=== PATIENT | male | born 1985 | race Caucasian/White ===

== ENCOUNTER 2025-02-13 13:21 | Emergency (ER) | payer BC, SELFPAY ==
[2025-02-13 13:23] VITALS: BP 137/93
--- NOTE | 2025-02-13 15:02 | ED.SKININJ ---
HPI-Injury
General
Chief Complaint: Skin Surface Trauma
Source: patient
Exam Limitations: none
Time Seen by Provider: 02/13/25 14:49
Nursing documentation reviewed up to this point in time: agreed with
History of Present Illness-Injury
Initial Injury comments:
39 yo male was stung by a bee left Achilles area, he was in his yard, holding a machete, went to swat the bee away and cut himself inner left ankle. Unsure of last dT.
Past History
Past History
ED Past Medical History: None
ED Past Surgical History: None
Social History
Tobacco: Non-smoker
Alcohol: Occasional
Personal:
Living: with family
Employment: Employed
Review of Systems
Review of Systems
Allergies reviewed?: Yes
All Other Systems: ROS reviewed and negative except as documented in HPI and ROS
Skin Exam
Laceration
Medial aspect left ankle:
Length in cm: 2
Orientation: vertical
Type of Laceration: simple
Any active bleeding?: no active bleeding
Distal skin color and temperature: normal-warm & good color
Normal distal neurovascular exam: Yes
Range of motion: full
Phy Exam
Physical Exam
Physical Exam:
PHYSICAL EXAMINATION:
General: no apparent distress, not acutely ill
Neuro: alert and oriented.
Psychiatric: well kept. interactive and cooperative
Musculoskeletal: Moves with ease
Skin: Warm, pink. Mild redness left Achilles at site of bee sting
Course
Orders/Labs/Results
Orders:
Orders
02/13/25 15:02
Tetanus/Diphth/Acelpertussis [Adacel] 0.5 ml IM .ONCE ONE
Vital Signs
Initial and Last Documented VS:
Initial Vital Signs
Temp Pulse Resp BP Pulse Ox
97.2 F 96 16 137/93 100
02/13/25 13:23 02/13/25 13:23 02/13/25 13:23 02/13/25 13:23 02/13/25 13:23
Last Documented Vital Signs
Temp Pulse Resp BP Pulse Ox
97.2 F 96 16 137/93 100
02/13/25 13:23 02/13/25 13:23 02/13/25 13:23 02/13/25 13:23 02/13/25 15:02
Procedures
Laceration Closure
Medial aspect left ankle:
Status of Wound: clean
Size of Wound in cm: 2
Description of Wound Edges: sharp
Preparation: cleaned with saline
Revision/Debridement: routine- no revision
Wound exploration: explored to base- no FB and no tendon involvement
Type of Closure: Dermabond-skin glue (Reinforced with skin adhesive and Steri-Strips, sterile gauze dressing)
MDM/Problems Addressed
MDM/Problems Addressed:
39 yo male was stung by a bee left Achilles area, he was in his yard, holding a machete, went to swat the bee away and cut himself inner left ankle. Unsure of last dT.
Tdap updated
Good approximation of wound with glue, steri strips and sterile gauze dressing applied.
*Pulse Oximetry
SaO2: 100
Oxygen Mode of Delivery: Room air
Patient hypoxic: not evaluated
*Critical Care Note
Total Time (30-74mins, 75-104mins- exclusive of procedures): Not Applicable
ED Attending Note
-
Portions of this chart may have been created with voice recognition software.� Occasional wrong word or��sound alike� substitutions may have occurred due to the inherent limitations of voice recognition software.
Discharge Plan
Departure
Patient Disposition: Home (Routine Discharge)
Date of Disposition: 02/13/25
Time of Disposition: 15:06
Patient with high blood pressure during this ER visit?: No
Condition: Good
Discharge Problem:
Bee sting, Laceration of left ankle
Instructions: Laceration Repair With Glue (DC), Insect bites and stings - ED (DC)
Referrals:
Blaire Trejo MD [Family Provider, Internal Medicine] - As needed
Activity Restrictions/Additional Instructions:
As we discussed, it takes 12 to 14 days for this area to heal.
Keep the current dressing on for 24 hours
Starting tomorrow, may briefly wet the area in the shower, just do not rub it or apply any ointments.
If the strips fall off before 12 days it is okay, simply keep the area covered with a Band-Aid.
Seek medical care immediately for signs of infection which may include increasing pain, swelling, redness, pus drainage, fever or red streak up the leg.
Interventions
Interventions:
*Risk Screen - Suicide Last Done: 02/13/25 13:23
*Neglect/Abuse Screening Last Done: 02/13/25 13:23
*Nursing Disposition Last Done: 02/13/25 15:17
ED-Skin Assessment Last Done: 02/13/25 14:11
Discharge Date and Time
Discharge Date/Time: 02/13/25 15:17
Print Language: NAURUAN
[2025-02-13] MEDS: ADACEL 0.5 ML IM (15:08)
== END 2025-02-13 15:17 | disposition home or self-care (01) ==
LOC: EMR 13:21
PROVIDERS: EMERGENCY PHYSICIAN Emergency Medicine; FAMILY PHYSICIAN Emergency Medicine
DX: T63.441A Toxic effect of venom of bees, accidental (unintentional), initial encounter (principal); S91.012A Laceration without foreign body, left ankle, initial encounter; W26.8XXA Contact with other sharp object(s), not elsewhere classified, initial encounter; Y92.007 Garden or yard of unspecified non-institutional (private) residence as the place of occurrence of the external cause; Z23 Encounter for immunization
CPT/HCPCS: 99282; 12001; 90471; 90715